=== PATIENT | male | born 1970 | race Caucasian/White ===

== ENCOUNTER 2020-01-27 12:30 | Inpatient (IN) | payer MEDICAID, OTHER ==
[~2020-01-27] VITALS: Ht 172.7 cm; Wt 78.0 kg
[2020-01-27] MEDS ORDERED: SODIUM CHLORIDE 0.9% 1,000 ML IV ONE (13:05)
[2020-01-27 15:13] LABS: CHLORIDE 98 mEq/L (98-107)
[2020-01-27 15:17] LABS: ETHANOL BLOOD < 10 mg/dL
[2020-01-27 15:21] LABS: BASOPHILS % 0.5 % (0.0-2.0); HEMATOCRIT. 46.9 % (42.0-52.0); HEMOGLOBIN. 16.1 g/dL (14.0-18.0); LYMPHOCYTES % 7.9 % (20.0-50.0); MEAN CORPUSCULAR HEMOGLOBIN 30.1 pg (28.0-32.0); MEAN CORPUSCULAR VOLUME 87.5 fL (80.0-94.0); MEAN PLATELET VOLUME 8.3 fl (7.4-10.4); NEUTROPHILS % 88.6 % (40.0-76.0); PLATELET 303 x1000/uL (130-400); RED BLOOD CELL COUNT 5.37 mill/uL (4.7-6.1); RED CELL DISTRIBUTION WIDTH 14.3 % (11.6-14.6)
[2020-01-27] MEDS ORDERED: AZITHROMYCIN 500 MG in DEXT 5% WATER 250 ML IV ONE (15:45)
[2020-01-27] MEDS ORDERED: CEFTRIAXONE 1 G PREMIX 50 ML IV ONE (15:45)
[2020-01-27] MEDS ORDERED: DOCUSATE SODIUM 100MG CAPSULE PO PRN (16:30)
[2020-01-27] MEDS ORDERED: NITROGLYCERIN 0.4MG TABLET SL SL PRN (16:30)
[2020-01-27] MEDS ORDERED: CLONIDINE 0.1MG TABLET PO PRN (16:30)
[2020-01-27] MEDS ORDERED: MAGNESIUM/ALUMINUM HYDROXIDE/SIMETHICONE 30ML UDC PO PRN (16:30)
[2020-01-27] MEDS ORDERED: IPRATROPIUM/ALBUTEROL 0.5-3(2.5)MG/3ML NEB ORI PRN (16:30)
[2020-01-27] MEDS ORDERED: ZOLPIDEM TARTRATE 5MG TABLET PO PRN (16:30)
[2020-01-27] MEDS ORDERED: GUAIFENESIN 200MG/10ML SUGAR FREE UDC PO PRN (16:30)
[2020-01-27] MEDS ORDERED: ONDANSETRON HCL 4MG/2ML INJ IV PRN (16:30)
[2020-01-27] MEDS ORDERED: ACETAMINOPHEN 325MG TABLET PO PRN (16:30)
[2020-01-27] MEDS ORDERED: AZITHROMYCIN 500 MG in DEXT 5% WATER 250 ML IV SCH (16:30)
[2020-01-27 16:39] LABS: CLARITY URINE CLEAR (CLEAR); COLOR URINE DARK YELLOW (YELLOW); KETONES URINE 4+ (NEGATIVE); LEUKOCYTE ESTERASE URINE NEGATIVE (NEGATIVE); NITRITE URINE NEGATIVE (NEGATIVE); OCCULT BLOOD URINE 1+ (NEGATIVE); PH URINE 5.5 (4.5-8.0); PROTEIN URINE 2+ (NEGATIVE); SPECIFIC GRAVITY URINE 1.031 (1.005-1.030)
[2020-01-27] MEDS ORDERED: MORPHINE SULFATE 4 MG/ML CPJ (NOT FOR IM USE) IV ONE (16:45)
[2020-01-27 16:49] LABS: *AMPHETAMINES SCREEN URINE NEGATIVE (NEGATIVE); *BARBITURATES SCREEN URINE NEGATIVE (NEGATIVE); *BENZODIAZEPINES SCREEN URINE NEGATIVE (NEGATIVE); *COCAINE SCREEN URINE NEGATIVE (NEGATIVE); METHADONE URINE SCREEN NEGATIVE (NEGATIVE); OPIATES URINE SCREEN NEGATIVE (NEGATIVE)
[2020-01-27 16:50] LABS: CANNABINOID URINE SCREEN NEGATIVE (NEGATIVE); PHENCYCLIDINE URINE SCREEN NEGATIVE (NEGATIVE)
[2020-01-27 16:59] LABS: D-DIMER 0.62 mg/L FEU (<0.50)
[2020-01-27 17:14] LABS: FIBRINOGEN > 850 mg/dL (200-400)
[2020-01-27] MEDS ORDERED: ENOXAPARIN 80MG/0.8ML SYR SUBCUT ONE (17:45)
[2020-01-27] MEDS ORDERED: DEXTROSE 50% WATER 50ML SYRINGE IV PRN (19:45)
[2020-01-27 22:30] VITALS: BP 130/85
[2020-01-27 23:12] LABS: CREATINE KINASE 53 IU/L (39-308)
[2020-01-27 23:13] LABS: CREATINE KINASE MB FRACTION < 1.0 ng/mL (0.5-3.6)
[2020-01-27] MEDS: FAMOTIDINE 20MG TABLET PO SCH (23:25)
[2020-01-27] MEDS: ASCORBIC ACID 500 MG TABLET PO SCH (23:25)
[2020-01-27] MEDS: ACETAMINOPHEN 325MG TABLET PO PRN (23:27)
[2020-01-27] MEDS: BLOOD SUGAR DIAGNOSTIC STRIP TEST SCH (23:45)
[2020-01-27] MEDS: INSULIN LISPRO 100 UNITS/ML SUBCUT SCH (23:45)
[2020-01-28] VITALS (14 sets, daily range): BP systolic 108–138; BP diastolic 66–88
[2020-01-28] MEDS: INSULIN LISPRO 100 UNITS/ML SUBCUT SCH ×4 (06:50→21:00)
[2020-01-28] MEDS: BLOOD SUGAR DIAGNOSTIC STRIP TEST SCH ×4 (06:50→21:00)
[2020-01-28 08:12] LABS: CREATINE KINASE 61 IU/L (39-308)
[2020-01-28 08:13] LABS: CREATINE KINASE MB FRACTION < 1.0 ng/mL (0.5-3.6)
[2020-01-28] MEDS: FAMOTIDINE 20MG TABLET PO SCH ×2 (08:16→20:36)
[2020-01-28] MEDS: ASCORBIC ACID 500 MG TABLET PO SCH ×2 (08:16→20:36)
[2020-01-28] MEDS: ZINC SULFATE 220 MG ( 50 ) CAPSULE PO SCH (08:16)
[2020-01-28] MEDS: ASPIRIN 325MG EC TABLET PO SCH (08:16)
[2020-01-28] MEDS: ACETAMINOPHEN 325MG TABLET PO PRN (08:24)
[2020-01-28] MEDS ORDERED: ENOXAPARIN 40MG/0.4ML SYR SUBCUT SCH (09:00)
[2020-01-28] MEDS ORDERED: ENOXAPARIN 40MG/0.4ML SYR SUBCUT NR (11:00)
[2020-01-28] MEDS: ALBUTEROL 6.7GM HFA INHALER ORI SCH ×2 (12:00→19:50)
[2020-01-28] MEDS ORDERED: CEFTRIAXONE 1,000 MG in DEXTROSE 5% WATER 50 ML IV SCH ×2 (14:00→16:00)
[2020-01-28 16:21] LABS: BG BASE EXCESS -1.1 mmol/L (-2.0-2.0); BG CARBOXYHEMOGLOBIN 0.3 % (0.5-1.5); BG DEOXYHEMOGLOBIN 2.2 % (0.0-5.0); BG FRACTION INSPIRED OXYGEN 100; BG METHEMOGLOBIN 0.3 % (0.0-1.5); BG OXYGEN SATURATION 97.8 % (92.0-98.5); BG OXYHEMOGLOBIN 97.2 % (94.0-97.0); BG PCO2 28.7 mmHg (35.0-45.0); BG PH 7.482 (7.350-7.450); BG PO2 102.9 mmHg (75.0-100.0); BG SAMPLE SITE LEFT RADIAL; BG TOTAL HEMOGLOBIN 15.3 g/dL (12.0-18.0); BG VENT MODE MASK - NRB
[2020-01-28] MEDS: AZITHROMYCIN 500 MG in DEXT 5% WATER 250 ML IV SCH (17:33)
[2020-01-28] MEDS: MEROPENEM 500 MG in SODIUM CHLORIDE 0.9% 50 ML IV SCH (18:44)
[2020-01-28 19:29] LABS: HEMATOCRIT. 44.6 % (42.0-52.0); HEMOGLOBIN. 15.1 g/dL (14.0-18.0); MEAN CORPUSCULAR HEMOGLOBIN 29.5 pg (28.0-32.0); PLATELET 315 x1000/uL (130-400); RED BLOOD CELL COUNT 5.13 mill/uL (4.7-6.1); RED CELL DISTRIBUTION WIDTH 14.5 % (11.6-14.6)
[2020-01-28 19:34] LABS: CHLORIDE 99 mEq/L (98-107)
[2020-01-28] MEDS: GUAIFENESIN 600MG ER TABLET PO SCH (20:36)
[2020-01-28] MEDS: ENOXAPARIN 80MG/0.8ML SYR SUBCUT SCH (20:36)
[2020-01-28 20:37] LABS: PLATELET ESTIMATE NORMAL
[2020-01-29] VITALS (33 sets, daily range): BP systolic 89–125; BP diastolic 63–96
[2020-01-29] MEDS: MEROPENEM 500 MG in SODIUM CHLORIDE 0.9% 50 ML IV SCH ×3 (01:07→17:21)
[2020-01-29 06:16] LABS: BASOPHILS % 0.2 % (0.0-2.0); EOSINOPHILS % 0.1 % (0.0-5.0); HEMATOCRIT. 40.9 % (42.0-52.0); HEMOGLOBIN. 14.3 g/dL (14.0-18.0); LYMPHOCYTES % 8.1 % (20.0-50.0); MEAN CORPUSCULAR HEMOGLOBIN 30.1 pg (28.0-32.0); MEAN CORPUSCULAR VOLUME 85.8 fL (80.0-94.0); MEAN PLATELET VOLUME 8.1 fl (7.4-10.4); MONOCYTES % 3.4 % (2.0-8.0); NEUTROPHILS % 88.2 % (40.0-76.0); PLATELET 336 x1000/uL (130-400); RED BLOOD CELL COUNT 4.77 mill/uL (4.7-6.1); RED CELL DISTRIBUTION WIDTH 14.3 % (11.6-14.6)
[2020-01-29 06:22] LABS: PROTHROMBIN TIME 10.6 sec (9.6-11.0)
[2020-01-29 06:25] LABS: CHLORIDE 102 mEq/L (98-107)
[2020-01-29] MEDS: BLOOD SUGAR DIAGNOSTIC STRIP TEST SCH ×4 (06:52→21:00)
[2020-01-29] MEDS: INSULIN LISPRO 100 UNITS/ML SUBCUT SCH ×4 (06:53→21:00)
[2020-01-29] MEDS: ASCORBIC ACID 500 MG TABLET PO SCH ×2 (08:14→21:02)
[2020-01-29] MEDS: GUAIFENESIN 600MG ER TABLET PO SCH ×2 (08:14→21:02)
[2020-01-29] MEDS: FAMOTIDINE 20MG TABLET PO SCH ×2 (08:14→21:02)
[2020-01-29] MEDS: ENOXAPARIN 80MG/0.8ML SYR SUBCUT SCH ×2 (08:14→21:03)
[2020-01-29] MEDS: ASPIRIN 325MG EC TABLET PO SCH (08:14)
[2020-01-29] MEDS: ZINC SULFATE 220 MG ( 50 ) CAPSULE PO SCH (08:19)
[2020-01-29 08:43] LABS: BG BASE EXCESS -0.3 mmol/L (-2.0-2.0); BG CARBOXYHEMOGLOBIN 0.3 % (0.5-1.5); BG DEOXYHEMOGLOBIN 1.9 % (0.0-5.0); BG FRACTION INSPIRED OXYGEN 100; BG HCO3 ACT 23.7 mmol/L (22.0-26.0); BG METHEMOGLOBIN 0.2 % (0.0-1.5); BG OXYGEN SATURATION 98.1 % (92.0-98.5); BG OXYHEMOGLOBIN 97.6 % (94.0-97.0); BG PCO2 36.8 mmHg (35.0-45.0); BG PH 7.426 (7.350-7.450); BG PO2 125.8 mmHg (75.0-100.0); BG SAMPLE SITE RIGHT BRACHIAL; BG TOTAL HEMOGLOBIN 14.7 g/dL (12.0-18.0); BG VENT MODE MASK - NRB
[2020-01-29] MEDS: AZITHROMYCIN 500 MG in DEXT 5% WATER 250 ML IV SCH (16:02)
[2020-01-29] MEDS: ACETAMINOPHEN 325MG TABLET PO PRN (21:03)
[2020-01-30] VITALS (19 sets, daily range): BP systolic 98–127; BP diastolic 64–88
[2020-01-30] MEDS: MEROPENEM 500 MG in SODIUM CHLORIDE 0.9% 50 ML IV SCH ×3 (02:53→17:51)
[2020-01-30] MEDS: BLOOD SUGAR DIAGNOSTIC STRIP TEST SCH ×4 (06:59→20:58)
[2020-01-30] MEDS: INSULIN LISPRO 100 UNITS/ML SUBCUT SCH ×4 (07:00→21:00)
[2020-01-30] MEDS: ASCORBIC ACID 500 MG TABLET PO SCH ×2 (08:17→20:57)
[2020-01-30] MEDS: ZINC SULFATE 220 MG ( 50 ) CAPSULE PO SCH (08:17)
[2020-01-30] MEDS: ASPIRIN 325MG EC TABLET PO SCH (08:17)
[2020-01-30] MEDS: FAMOTIDINE 20MG TABLET PO SCH ×2 (08:18→20:57)
[2020-01-30] MEDS: GUAIFENESIN 600MG ER TABLET PO SCH ×2 (08:18→20:57)
[2020-01-30] MEDS: ENOXAPARIN 80MG/0.8ML SYR SUBCUT SCH ×2 (08:18→20:58)
[2020-01-30 10:53] LABS: BG BASE EXCESS 1.9 mmol/L (-2.0-2.0); BG CARBOXYHEMOGLOBIN 0.5 % (0.5-1.5); BG DEOXYHEMOGLOBIN 3.4 % (0.0-5.0); BG FRACTION INSPIRED OXYGEN 100; BG HCO3 ACT 25.3 mmol/L (22.0-26.0); BG METHEMOGLOBIN 0.3 % (0.0-1.5); BG OXYGEN SATURATION 96.6 % (92.0-98.5); BG OXYHEMOGLOBIN 95.8 % (94.0-97.0); BG PH 7.465 (7.350-7.450); BG PO2 85.1 mmHg (75.0-100.0); BG SAMPLE SITE RIGHT BRACHIAL; BG VENT MODE MASK - NRB
[2020-01-30] MEDS: AZITHROMYCIN 500 MG in DEXT 5% WATER 250 ML IV SCH (16:44)
[2020-01-30] MEDS: ALBUTEROL 6.7GM HFA INHALER ORI SCH ×2 (16:55→20:40)
[2020-01-31] VITALS: BP 119/82
[2020-01-31] MEDS: ALBUTEROL 6.7GM HFA INHALER ORI SCH ×3 (01:00→13:10)
[2020-01-31] MEDS: MEROPENEM 500 MG in SODIUM CHLORIDE 0.9% 50 ML IV SCH ×3 (02:18→17:55)
[2020-01-31 04:00] VITALS: BP 107/79
[2020-01-31] MEDS: BLOOD SUGAR DIAGNOSTIC STRIP TEST SCH ×4 (06:08→21:41)
[2020-01-31] MEDS: INSULIN LISPRO 100 UNITS/ML SUBCUT SCH ×4 (07:10→21:00)
[2020-01-31 08:00] VITALS: BP 124/88
[2020-01-31] MEDS: ASCORBIC ACID 500 MG TABLET PO SCH ×2 (09:21→21:20)
[2020-01-31] MEDS: ASPIRIN 325MG EC TABLET PO SCH (09:21)
[2020-01-31] MEDS: ENOXAPARIN 80MG/0.8ML SYR SUBCUT SCH ×2 (09:21→21:22)
[2020-01-31] MEDS: FAMOTIDINE 20MG TABLET PO SCH ×2 (09:22→21:21)
[2020-01-31] MEDS: GUAIFENESIN 600MG ER TABLET PO SCH ×2 (09:22→21:21)
[2020-01-31] MEDS: ZINC SULFATE 220 MG ( 50 ) CAPSULE PO SCH (09:22)
[2020-01-31 12:00] VITALS: BP 121/98
[2020-01-31] MEDS: METHYLPREDNISOLONE SOD SUCC 40 MG/ML VIAL IV SCH ×2 (12:30→21:21)
[2020-01-31 16:00] VITALS: BP 118/69
[2020-01-31] MEDS: AZITHROMYCIN 500 MG in DEXT 5% WATER 250 ML IV SCH (16:49)
[2020-01-31 20:00] VITALS: BP 109/77
[2020-02-01] VITALS: BP 115/83
[2020-02-01] MEDS: MEROPENEM 500 MG in SODIUM CHLORIDE 0.9% 50 ML IV SCH ×3 (02:56→17:58)
[2020-02-01] MEDS: ALBUTEROL 6.7GM HFA INHALER ORI SCH ×4 (02:59→17:58)
[2020-02-01 04:00] VITALS: BP 104/73
[2020-02-01] MEDS: BLOOD SUGAR DIAGNOSTIC STRIP TEST SCH ×4 (07:08→21:14)
[2020-02-01] MEDS: INSULIN LISPRO 100 UNITS/ML SUBCUT SCH ×4 (07:10→21:15)
[2020-02-01 08:00] VITALS: BP 122/65
[2020-02-01] MEDS: ZINC SULFATE 220 MG ( 50 ) CAPSULE PO SCH (09:14)
[2020-02-01] MEDS: ASPIRIN 325MG EC TABLET PO SCH (09:14)
[2020-02-01] MEDS: ENOXAPARIN 80MG/0.8ML SYR SUBCUT SCH ×2 (09:14→21:14)
[2020-02-01] MEDS: GUAIFENESIN 600MG ER TABLET PO SCH ×2 (09:14→21:14)
[2020-02-01] MEDS: FAMOTIDINE 20MG TABLET PO SCH ×2 (09:14→21:14)
[2020-02-01] MEDS: ASCORBIC ACID 500 MG TABLET PO SCH ×2 (09:14→21:14)
[2020-02-01] MEDS: METHYLPREDNISOLONE SOD SUCC 40 MG/ML VIAL IV SCH ×2 (09:15→21:14)
[2020-02-01 12:00] VITALS: BP 110/63
[2020-02-01 12:47] LABS: BG CARBOXYHEMOGLOBIN 0.1 % (0.5-1.5); BG DEOXYHEMOGLOBIN 2.2 % (0.0-5.0); BG FRACTION INSPIRED OXYGEN 100; BG HCO3 ACT 22.2 mmol/L (22.0-26.0); BG METHEMOGLOBIN 0.2 % (0.0-1.5); BG OXYGEN SATURATION 97.8 % (92.0-98.5); BG OXYHEMOGLOBIN 97.5 % (94.0-97.0); BG PCO2 29.3 mmHg (35.0-45.0); BG PH 7.498 (7.350-7.450); BG PO2 98.1 mmHg (75.0-100.0); BG SAMPLE SITE LEFT RADIAL; BG TOTAL HEMOGLOBIN 12.5 g/dL (12.0-18.0); BG VENT MODE MASK - NRB
[2020-02-01 16:00] VITALS: BP 107/72
[2020-02-01] MEDS: AZITHROMYCIN 500 MG in DEXT 5% WATER 250 ML IV SCH (16:45)
[2020-02-01 20:00] VITALS: BP 107/74
[2020-02-02] VITALS: BP 107/75
[2020-02-02] MEDS: ALBUTEROL 6.7GM HFA INHALER ORI SCH ×4 (01:22→17:48)
[2020-02-02] MEDS: MEROPENEM 500 MG in SODIUM CHLORIDE 0.9% 50 ML IV SCH ×3 (01:39→20:55)
[2020-02-02 04:00] VITALS: BP 100/71
[2020-02-02] MEDS: BLOOD SUGAR DIAGNOSTIC STRIP TEST SCH ×4 (06:09→20:57)
[2020-02-02] MEDS: INSULIN LISPRO 100 UNITS/ML SUBCUT SCH ×4 (06:10→21:00)
[2020-02-02 08:00] VITALS: BP 101/76
[2020-02-02] MEDS ORDERED: AZITHROMYCIN 500 MG TABLET PO SCH (09:00)
[2020-02-02] MEDS: METHYLPREDNISOLONE SOD SUCC 40 MG/ML VIAL IV SCH ×2 (09:20→20:56)
[2020-02-02] MEDS: FAMOTIDINE 20MG TABLET PO SCH ×2 (09:20→20:56)
[2020-02-02] MEDS: ASCORBIC ACID 500 MG TABLET PO SCH ×2 (09:20→20:56)
[2020-02-02] MEDS: ENOXAPARIN 80MG/0.8ML SYR SUBCUT SCH ×2 (09:20→20:57)
[2020-02-02] MEDS: ZINC SULFATE 220 MG ( 50 ) CAPSULE PO SCH (09:20)
[2020-02-02] MEDS: ASPIRIN 325MG EC TABLET PO SCH (09:20)
[2020-02-02] MEDS: GUAIFENESIN 600MG ER TABLET PO SCH ×2 (09:20→20:56)
[2020-02-02 12:00] VITALS: BP 90/67
[2020-02-02 16:00] VITALS: BP 102/67
[2020-02-02 20:00] VITALS: BP 97/66
[2020-02-03] VITALS: BP 95/67
[2020-02-03] MEDS: ALBUTEROL 6.7GM HFA INHALER ORI SCH ×4 (00:41→17:58)
[2020-02-03 04:00] VITALS: BP 100/71
[2020-02-03] MEDS: BLOOD SUGAR DIAGNOSTIC STRIP TEST SCH ×4 (06:18→20:22)
[2020-02-03] MEDS: INSULIN LISPRO 100 UNITS/ML SUBCUT SCH ×4 (07:10→20:59)
[2020-02-03] MEDS: ZINC SULFATE 220 MG ( 50 ) CAPSULE PO SCH (09:06)
[2020-02-03] MEDS: ASPIRIN 325MG EC TABLET PO SCH (09:06)
[2020-02-03] MEDS: FAMOTIDINE 20MG TABLET PO SCH ×2 (09:06→20:21)
[2020-02-03] MEDS: ASCORBIC ACID 500 MG TABLET PO SCH ×2 (09:06→20:21)
[2020-02-03] MEDS: METHYLPREDNISOLONE SOD SUCC 40 MG/ML VIAL IV SCH ×2 (09:06→20:21)
[2020-02-03] MEDS: GUAIFENESIN 600MG ER TABLET PO SCH ×2 (09:06→20:21)
[2020-02-03] MEDS: ENOXAPARIN 80MG/0.8ML SYR SUBCUT SCH ×2 (09:07→20:21)
[2020-02-03 12:00] VITALS: BP 103/70
[2020-02-03 16:00] VITALS: BP 104/70
[2020-02-03 20:00] VITALS: BP 107/72
[2020-02-04 00:31] VITALS: BP 102/75
[2020-02-04] MEDS: ALBUTEROL 6.7GM HFA INHALER ORI SCH ×5 (00:31→23:16)
[2020-02-04 04:00] VITALS: BP 91/65
[2020-02-04] MEDS: BLOOD SUGAR DIAGNOSTIC STRIP TEST SCH ×4 (06:22→20:56)
[2020-02-04] MEDS: INSULIN LISPRO 100 UNITS/ML SUBCUT SCH ×4 (06:59→21:00)
[2020-02-04] MEDS: ASPIRIN 325MG EC TABLET PO SCH (10:07)
[2020-02-04] MEDS: METHYLPREDNISOLONE SOD SUCC 40 MG/ML VIAL IV SCH ×2 (10:07→20:56)
[2020-02-04] MEDS: ZINC SULFATE 220 MG ( 50 ) CAPSULE PO SCH (10:07)
[2020-02-04] MEDS: ASCORBIC ACID 500 MG TABLET PO SCH ×2 (10:07→20:56)
[2020-02-04] MEDS: FAMOTIDINE 20MG TABLET PO SCH ×2 (10:07→20:56)
[2020-02-04] MEDS: ENOXAPARIN 80MG/0.8ML SYR SUBCUT SCH ×2 (10:08→20:56)
[2020-02-04] MEDS: GUAIFENESIN 600MG ER TABLET PO SCH ×2 (10:08→20:56)
[2020-02-04 12:00] VITALS: BP 94/65
[2020-02-04 16:00] VITALS: BP 96/65
[2020-02-04 20:00] VITALS: BP 102/63
[2020-02-05 00:05] VITALS: BP 96/66
[2020-02-05 04:00] VITALS: BP 94/67
[2020-02-05] MEDS: ALBUTEROL 6.7GM HFA INHALER ORI SCH ×4 (05:39→23:48)
[2020-02-05] MEDS: BLOOD SUGAR DIAGNOSTIC STRIP TEST SCH ×4 (05:43→21:00)
[2020-02-05] MEDS: INSULIN LISPRO 100 UNITS/ML SUBCUT SCH ×4 (05:43→22:25)
[2020-02-05 08:00] VITALS: BP 99/61
[2020-02-05] MEDS: METHYLPREDNISOLONE SOD SUCC 40 MG/ML VIAL IV SCH (08:26)
[2020-02-05] MEDS: ASPIRIN 325MG EC TABLET PO SCH (08:26)
[2020-02-05] MEDS: FAMOTIDINE 20MG TABLET PO SCH ×2 (08:27→21:59)
[2020-02-05] MEDS: ASCORBIC ACID 500 MG TABLET PO SCH ×2 (08:27→21:59)
[2020-02-05] MEDS: GUAIFENESIN 600MG ER TABLET PO SCH ×2 (08:27→21:59)
[2020-02-05] MEDS: ZINC SULFATE 220 MG ( 50 ) CAPSULE PO SCH (08:27)
[2020-02-05] MEDS: ENOXAPARIN 80MG/0.8ML SYR SUBCUT SCH ×2 (08:28→22:00)
[2020-02-05 12:00] VITALS: BP 99/65
[2020-02-05] MEDS ORDERED: BENZONATATE 100MG CAPSULE PO PRN (14:00)
[2020-02-05 16:00] VITALS: BP 102/56
[2020-02-05 20:00] VITALS: BP 95/57
[2020-02-06] VITALS: BP 93/61
[2020-02-06 04:00] VITALS: BP 91/63
[2020-02-06 06:04] LABS: BASOPHILS % 1.1 % (0.0-2.0); EOSINOPHILS % 2.6 % (0.0-5.0); HEMATOCRIT. 45.4 % (42.0-52.0); LYMPHOCYTES % 32.3 % (20.0-50.0); MEAN CORPUSCULAR HEMOGLOBIN 30.7 pg (28.0-32.0); MEAN CORPUSCULAR VOLUME 86.9 fL (80.0-94.0); MEAN PLATELET VOLUME 7.3 fl (7.4-10.4); MONOCYTES % 8.7 % (2.0-8.0); NEUTROPHILS % 55.3 % (40.0-76.0); PLATELET 706 x1000/uL (130-400); RED BLOOD CELL COUNT 5.23 mill/uL (4.7-6.1); RED CELL DISTRIBUTION WIDTH 14.1 % (11.6-14.6)
[2020-02-06] MEDS: BLOOD SUGAR DIAGNOSTIC STRIP TEST SCH ×4 (06:06→20:59)
[2020-02-06] MEDS: ALBUTEROL 6.7GM HFA INHALER ORI SCH ×3 (06:06→17:34)
[2020-02-06 06:17] LABS: CHLORIDE 105 mEq/L (98-107)
[2020-02-06] MEDS: PREDNISONE 20MG TABLET PO SCH (06:30)
[2020-02-06] MEDS: INSULIN LISPRO 100 UNITS/ML SUBCUT SCH ×4 (06:30→20:59)
[2020-02-06 08:00] VITALS: BP 99/51
[2020-02-06] MEDS: ASCORBIC ACID 500 MG TABLET PO SCH ×2 (09:07→21:07)
[2020-02-06] MEDS: ASPIRIN 325MG EC TABLET PO SCH (09:07)
[2020-02-06] MEDS: ZINC SULFATE 220 MG ( 50 ) CAPSULE PO SCH (09:07)
[2020-02-06] MEDS: GUAIFENESIN 600MG ER TABLET PO SCH ×2 (09:07→21:07)
[2020-02-06] MEDS: FAMOTIDINE 20MG TABLET PO SCH ×2 (09:07→21:07)
[2020-02-06] MEDS: ENOXAPARIN 80MG/0.8ML SYR SUBCUT SCH ×2 (09:19→21:07)
[2020-02-06 12:00] VITALS: BP 99/60
[2020-02-06 16:00] VITALS: BP 100/61
[2020-02-06 20:00] VITALS: BP 92/61
[2020-02-07 00:21] VITALS: BP 92/60
[2020-02-07] MEDS: ALBUTEROL 6.7GM HFA INHALER ORI SCH ×4 (00:47→18:11)
[2020-02-07 04:00] VITALS: BP 93/62
[2020-02-07] MEDS: BLOOD SUGAR DIAGNOSTIC STRIP TEST SCH ×4 (06:51→21:00)
[2020-02-07] MEDS: INSULIN LISPRO 100 UNITS/ML SUBCUT SCH ×4 (07:10→21:00)
[2020-02-07] MEDS: PREDNISONE 20MG TABLET PO SCH (07:37)
[2020-02-07 08:00] VITALS: BP 86/56
[2020-02-07] MEDS: ASCORBIC ACID 500 MG TABLET PO SCH ×2 (08:15→22:15)
[2020-02-07] MEDS: FAMOTIDINE 20MG TABLET PO SCH ×2 (08:15→22:15)
[2020-02-07] MEDS: ASPIRIN 325MG EC TABLET PO SCH (08:15)
[2020-02-07] MEDS: ZINC SULFATE 220 MG ( 50 ) CAPSULE PO SCH (08:15)
[2020-02-07] MEDS: ENOXAPARIN 80MG/0.8ML SYR SUBCUT SCH ×2 (08:15→22:16)
[2020-02-07] MEDS: GUAIFENESIN 600MG ER TABLET PO SCH ×2 (08:15→22:15)
[2020-02-07 11:52] VITALS: BP 86/58
[2020-02-07 20:00] VITALS: BP 96/66
[2020-02-08] VITALS: BP 97/62
[2020-02-08 04:00] VITALS: BP 91/57
[2020-02-08] MEDS: BLOOD SUGAR DIAGNOSTIC STRIP TEST SCH ×2 (06:22→11:40)
[2020-02-08] MEDS: ALBUTEROL 6.7GM HFA INHALER ORI SCH ×2 (06:22→12:00)
[2020-02-08] MEDS: INSULIN LISPRO 100 UNITS/ML SUBCUT SCH ×2 (06:23→12:10)
[2020-02-08 08:00] VITALS: BP 91/57
[2020-02-08] MEDS: ASPIRIN 325MG EC TABLET PO SCH (08:49)
[2020-02-08] MEDS: ZINC SULFATE 220 MG ( 50 ) CAPSULE PO SCH (08:49)
[2020-02-08] MEDS: ASCORBIC ACID 500 MG TABLET PO SCH (08:49)
[2020-02-08] MEDS: GUAIFENESIN 600MG ER TABLET PO SCH (08:49)
[2020-02-08] MEDS: FAMOTIDINE 20MG TABLET PO SCH (08:49)
[2020-02-08] MEDS: ENOXAPARIN 80MG/0.8ML SYR SUBCUT SCH (08:50)
[2020-02-08 12:00] VITALS: BP 89/59
[2020-02-08 17:00] VITALS: BP 86/58
== END 2020-02-08 19:30 | disposition home or self-care (01) | DRG 720 ==
LOC: ER 12:30 → 7EST 16:17 → EDBEDREQ 17:05 → EDBEDREQTM 17:05 → ENRESERV 20:58 → MICUSO 01-28 16:43 → 7EST 01-30 23:02
PROVIDERS: ADMIT Internal Medicine; ATTEND Internal Medicine
DX: A41.89 Other specified sepsis (principal); U07.1 COVID-19; J96.01 Acute respiratory failure with hypoxia; E43 Unspecified severe protein-calorie malnutrition; G92 Toxic encephalopathy; D68.59 Other primary thrombophilia; E87.1 Hypo-osmolality and hyponatremia; J12.89 Other viral pneumonia; E11.9 Type 2 diabetes mellitus without complications; D72.810 Lymphocytopenia; R74.0 Nonspecific elevation of levels of transaminase and lactic acid dehydrogenase [LDH]; E87.6 Hypokalemia; R07.81 Pleurodynia; Z83.3 Family history of diabetes mellitus; Z79.4 Long term (current) use of insulin; Z68.26 Body mass index [BMI] 26.0-26.9, adult
CPT/HCPCS: 36415; 36600; 71045; 80048; 80053; 80305; 80320; 81003; 82375; 82550; 82553; 82728; 82805; 82962; 83036; 83605; 83615; 83880; 84145; 84484; 85025; 85379; 85384; 86140; 87635; 93005; 99285; J0456; J0696; J1650; J1815; J2185; J2270; J2920; J7030; J7060; J7512; G0480; U0003-CS